=== PATIENT | male | born 1985 | race Caucasian/White ===

== ENCOUNTER 2019-12-25 08:30 | Outpatient (RCR) | payer OTHER, SELFPAY ==
--- NOTE | 2019-10-01 09:51 | PTOPEVAL ---
Thank you for referring this patient to [facility]. Please review, sign, date and return this plan of care CHARLES. Pt seen by physical therapy due to right shoulder pain. He demonstrates decreased shoulder range, muscle weakness, radiating UE symptoms and pain with limitation with reaching activities. PT is recommending therapy to be continued for 2x/wk x 8 wk If you have any questions or concerns, please contact us at [phone] I agree with and certify that the following plan of care is medically necessary. Referring Physician Date Attending Provider: Armani Kamara MD *PT Outpatient Evaluation Start: 10/01/19 08:40 Freq: Status: Active Protocol: Document 10/01/19 08:41 CAP (Rec: 10/01/19 09:43 CAP [id number]) Therapy Assessment Status Assessment Status Assessment Status Evaluation Outpatient Past Medical History Cardiovascular History Hx Other Cardiac Disorders Yes: beta adore Respiratory History Hx Respiratory Disorders No Significant History Gastrointestinal History Hx Gastrointestinal Disorders No Significant History Genitourinary History Hx Genitourinary Disorders No Significant History Musculoskeletal History Hx Other Musculoskeletal Disorders Yes: jean carlos elbow epicondylitis Hematological History Hx Hematological Disorders No Significant History Endocrine History Hx Endocrine Disorders No Significant History HEENT History Hx HEENT Disorders No Significant History Integumentary History Hx Skin Disorders No Significant History Reproductive History Hx Reproductive Disorders No Significant History Psychosocial History Hx Psychiatric Disorders No Significant History Pain History Has Past Pain Affected Your Daily Life Yes: left shoulder pain, right eblow pain Anesthesia History Hx Anesthesia Reactions No Significant History Other History Hx Cancer Yes Evaluation Information Problem Diagnosis right shoulder pain Onset 9 months ago Cause unknown Subjective Information Pt reports he started having Query Text:As Reported By Patient/ right shoulder pain 9 months Family ago. He reports progression of right shoulder pain. He reports intermittented N/T into right hand. Reports increased symptoms with throwing, reaching behind, overhead, sleeping, and lifting objects. He took myloxicam for 1 month with no relief. Use of ice/ heat/TENS unit with min relief of symptoms
--- NOTE | 2019-10-30 17:01 | PTOPEVAL ---
Thank you for referring this patient to [facility]. Please review, sign, date and return this plan of care CHARLES. Pt has been seen for 8 PT visits to address UE impairments related to his right shoulder. New orders to address his right elbow have been added to the treatment plan. He is progressing towards therapy goals. Will add new goals for right elbow impairments. Cont PT 2x/wk x 4 wk. I agree with and certify that the following plan of care is medically necessary. Referring Physician Date Attending Provider: Armani Kamara MD Referring Provider: *PT Outpatient Evaluation Start: 10/01/19 08:40 Freq: Status: Active Protocol: Document 10/30/19 16:07 VIRI (Rec: 10/30/19 17:01 CAP [id number]) Therapy Assessment Status Assessment Status Assessment Status Re-evaluation Outpatient Past Medical History Cardiovascular History Hx Other Cardiac Disorders Yes: beta adore Respiratory History Hx Respiratory Disorders No Significant History Gastrointestinal History Hx Gastrointestinal Disorders No Significant History Genitourinary History Hx Genitourinary Disorders No Significant History Musculoskeletal History Hx Other Musculoskeletal Disorders Yes: jean carlos elbow epicondylitis Hematological History Hx Hematological Disorders No Significant History Endocrine History Hx Endocrine Disorders No Significant History HEENT History Hx HEENT Disorders No Significant History Integumentary History Hx Skin Disorders No Significant History Reproductive History Hx Reproductive Disorders No Significant History Psychosocial History Hx Psychiatric Disorders No Significant History Pain History Has Past Pain Affected Your Daily Life Yes: left shoulder pain, right eblow pain Anesthesia History Hx Anesthesia Reactions No Significant History Other History Hx Cancer Yes Evaluation Information Problem Diagnosis right shoulder pain, new DX of right elbow pain Onset 9 months ago, elbow pain 3 years ago Subjective Information Pt reports he started having Query Text:As Reported By Patient/ right shoulder pain 9 months Family ago. He reports progression of right shoulder and right elbow pain. He reports intermittented N/T into right hand. Reports increased symptoms with throwing, reaching behind, overhead, holding objects, sleeping, and lifting objects. Reports right shoulder tendern He also reports jean carlos lateral
--- NOTE | 2019-11-29 17:34 | PTOPEVAL ---
Thank you for referring this patient to [facility]. Please review, sign, date and return this plan of care CHARLES. Pt has received 14 therapy visits to address impairments of right shoulder and elbow region. He demonstrates progress with right shoulder pain, strength and range. However, he continues to demonstrate limitations related to the elbow soft tissue and motion. He requires additional skilled therapy 2x/wk x 4 additional wk to achieve therapy goals. I agree with and certify that the following plan of care is medically necessary. Referring Physician Date Attending Provider: Armani Kamara MD Referring Provider: *PT Outpatient Evaluation Start: 10/01/19 08:40 Freq: Status: Active Protocol: Document 11/29/19 08:30 CAP (Rec: 11/29/19 09:29 CAP [email or web address]) Therapy Assessment Status Assessment Status Assessment Status Re-evaluation Outpatient Past Medical History Cardiovascular History Hx Other Cardiac Disorders Yes: beta adore Respiratory History Hx Respiratory Disorders No Significant History Gastrointestinal History Hx Gastrointestinal Disorders No Significant History Genitourinary History Hx Genitourinary Disorders No Significant History Musculoskeletal History Hx Other Musculoskeletal Disorders Yes: jean carlos elbow epicondylitis Hematological History Hx Hematological Disorders No Significant History Endocrine History Hx Endocrine Disorders No Significant History HEENT History Hx HEENT Disorders No Significant History Integumentary History Hx Skin Disorders No Significant History Reproductive History Hx Reproductive Disorders No Significant History Psychosocial History Hx Psychiatric Disorders No Significant History Pain History Has Past Pain Affected Your Daily Life Yes: left shoulder pain, right eblow pain Anesthesia History Hx Anesthesia Reactions No Significant History Other History Hx Cancer Yes Evaluation Information Problem Diagnosis right shoulder pain, new DX of right elbow pain Onset 9 months ago, elbow pain 3 years ago Cause unknown Subjective Information Pt reports his elbow and Query Text:As Reported By Patient/ shoulder pain are doing better Family . Reports N/T has improved and have only occasionally with various activities. Reports no pain in the shoulder or elbow with throwing motion, reaching or overhead. Reports intermittent elbow pain with end range flex/ext motion. Reports tenderness and
--- NOTE | 2019-12-09 08:43 | PCPTNOTE ---
Patient called & cancelled scheduled appointment this date due to kids being home from school.
--- NOTE | 2019-12-25 09:10 | PTOPEVAL ---
Thank you for referring this patient to [facility]. Please review, sign, date and return this plan of care CHARLES. Pt has received 19 therapy visits to address shoulder and elbow impairments. Shoulder limitations and pain have improved with therapy, however elbow pain and restrictions have not improved. He has partially achieved his therapy goals at this time. No additional therapy planned at this time due to limited progress and changes with elbow restrictions. DC skilled PT at this time. I agree with and certify that the following plan of care is medically necessary. Referring Physician Date Attending Provider: Armani Kamara MD Referring Provider: *PT Outpatient Re-Evaluation/Discharge Start: 10/01/19 08:40 Freq: Status: Active Protocol: Document 12/25/19 08:28 VIRI (Rec: 12/25/19 09:09 CAP [id number]) Therapy Assessment Status Assessment Status Assessment Status Discharge Outpatient Past Medical History Cardiovascular History Hx Other Cardiac Disorders Yes: beta adore Respiratory History Hx Respiratory Disorders No Significant History Gastrointestinal History Hx Gastrointestinal Disorders No Significant History Genitourinary History Hx Genitourinary Disorders No Significant History Musculoskeletal History Hx Other Musculoskeletal Disorders Yes: jean carlos elbow epicondylitis Hematological History Hx Hematological Disorders No Significant History Endocrine History Hx Endocrine Disorders No Significant History HEENT History Hx HEENT Disorders No Significant History Integumentary History Hx Skin Disorders No Significant History Reproductive History Hx Reproductive Disorders No Significant History Psychosocial History Hx Psychiatric Disorders No Significant History Pain History Has Past Pain Affected Your Daily Life Yes: left shoulder pain, right eblow pain Anesthesia History Hx Anesthesia Reactions No Significant History Other History Hx Cancer Yes Evaluation Information Problem Diagnosis right shoulder pain, new DX of right elbow pain Onset 9 months ago, elbow pain 3 years ago Cause unknown Subjective Information Pt reports his shoulder is Query Text:As Reported By Patient/ better with therapy but his Family elbow and forearm have not improved. Reports pain with picking up any object or grabbing objects with right UE is painful. He reports tightness with resistance training for tricep/bicep muscles. Performs simple basic wrist or elbow flex/ext is
== END 2019-12-26 08:42 | disposition home or self-care (01) ==
LOC: ANHPT 08:30
PROVIDERS: PCP Family Medicine; Visit Provider Family Medicine
DX: M25.521 Pain in right elbow (principal); M25.511 Pain in right shoulder
CPT/HCPCS: 97110; 97140; 97162